=== PATIENT | female | born 1955 | race Caucasian/White ===

== ENCOUNTER → 2016-06-09 | Outpatient (CLI) | payer OTHER ==
[~2016-06-09] MED LIST: ESTR1TAB PO; FLUO20SO3 PO; LEVO.1 PO; MIRA33502 PO; PROG100C PO; ZANTTAB9 PO
[2016-06-09 12:03] LABS: FREE T3 3.53 PG/ML (2.18-3.98); FREE T4 1.52 NG/DL (0.76-1.46)
== END ==
LOC: CLAB 11:11
PROVIDERS: ATTEND Internal Medicine
DX: E03.9 Hypothyroidism, unspecified (principal); R53.83 Other fatigue
CPT/HCPCS: 36415; 84439; 84443; 84481